=== PATIENT | female | born 1960 | race Two or more races ===

== ENCOUNTER 2018-05-31 11:15 | Emergency (ER) | payer BC, OTHER ==
[~2018-05-31] VITALS: Ht 162.6 cm; Wt 88.8 kg
[2018-05-31 12:52] LABS: BASOPHILS # (AUTO) 0.03 x10^3/uL (0-0.1); BASOPHILS % (AUTO) 0 % (0-1); EOSINOPHILS % (AUTO) 3 % (1-7); LYMPHOCYTES # (AUTO) 2.64 x10^3/uL (1-3.4); LYMPHOCYTES % (AUTO) 38 % (22-44); MD NO; MEAN CORPUSCULAR HEMOGLOBIN 31.5 pg (27.0-34.8); MEAN CORPUSCULAR HGB CONC 33.9 g/dL (32.4-35.8); MEAN PLATELET VOLUME 8.8 fL (7.4-10.4); MONOCYTES % (AUTO) 7 % (2-9); NEUTROPHILS # (AUTO) 3.66 x10^3/uL (1.8-6.8); NEUTROPHILS % (AUTO) 52 % (42-75); PLATELET COUNT 283 x10^3/uL (130-400); RED BLOOD COUNT 4.73 x10^6/uL (3.82-5.3); RED CELL DISTRIBUTION WIDTH 13.8 % (9.6-15.2)
[2018-05-31 12:56] LABS: INTERNATIONAL NORMALIZED RATIO 0.95 (0.93-1.1)
[2018-05-31 13:00] LABS: ANION GAP 6 mmol/L (5-15); CHLORIDE 110 mmol/L (98-107)
[2018-05-31 13:05] LABS: ALANINE AMINOTRANSFERASE 28 U/L (12-78); ALKALINE PHOSPHATASE 110 U/L (45-117); BILIRUBIN,TOTAL 0.4 mg/dL (0.2-1.0); CREATININE 0.83 mg/dL (0.55-1.02); TOTAL PROTEIN 7.8 g/dL (6.4-8.2)
--- NOTE | 2018-05-31 13:05 | NUR ---
Pt amb. to rm 24 from lobby
--- NOTE | 2018-05-31 13:27 | NUR ---
PT TO ED FOR NAUSEA X4 DAYS AND BLOODY STOOL X1 DAY. CONNECTED TO MONITORS.VSS. CALL LIGHT WITHIN REACH. MD ASSESSMENT COMPLETE. AWAITING ORDERS.
[2018-05-31] MEDS ORDERED: OMEP-110 PO (13:29)
[2018-05-31] MEDS ORDERED: METF500T17 PO (13:30)
[2018-05-31] MEDS ORDERED: PHEN37.53 PO (13:30)
[2018-05-31 13:58] VITALS: BP 122/80
--- NOTE | 2018-05-31 13:58 | NUR ---
pt resting in room with family at bedside. no needs at this time. vss. call light within reach. anoscopy setup complete.
--- NOTE | 2018-05-31 14:07 | NUR ---
md to bedside for anoscopy.
== END 2018-05-31 14:46 | disposition home or self-care (01) ==
LOC: ED 13:15
DX: K62.5 Hemorrhage of anus and rectum (principal); K64.8 Other hemorrhoids; R51 Headache
CPT/HCPCS: 36415; 80053; 85025; 85610; 85730; 99284

== ENCOUNTER → 2018-06-15 | Outpatient (CLI) | payer OTHER ==
[~2018-06-15] MED LIST: METF500T17 PO; OMEP-110 PO; PHEN37.53 PO
== END | disposition home or self-care (01) ==
LOC: RAD 14:09
PROVIDERS: ATTEND Nurse Practitioner Primary Care
DX: R42 Dizziness and giddiness (principal)
CPT/HCPCS: 93880

== ENCOUNTER → 2018-07-01 | Outpatient (CLI) | payer OTHER | END | disposition home or self-care (01) | LOC: CFH 13:24 | PROVIDERS: ATTEND Nurse Practitioner Primary Care | DX: N60.01 Solitary cyst of right breast (principal) | CPT/HCPCS: 76641; 77065; G0279 ==

== ENCOUNTER 2019-05-14 17:06 | Emergency (ER) | payer OTHER ==
[~2019-05-14] VITALS: Ht 162.6 cm; Wt 81.8 kg
[2019-05-14] MEDS ORDERED: HYDROcodone/APAP 5/325 TABLET ONE (17:56)
--- NOTE | 2019-05-14 17:57 | NUR ---
Pain L calf & ankle after falling while skiing today. Unable to bear weight due to pain 2+pedal pulse L foot. Ice to L calf. Leg in greatest position of comfort. PO pain med given as per emar for 10 LLE pain. x-rays pending, @ BS. Pt instructed to stay NPO & both aware of POC.
[2019-05-14] MEDS ORDERED: HYDROcodone/APAP 5/325 TABLET PO ONE (18:00)
[2019-05-14 19:41] VITALS: BP 136/82
== END 2019-05-14 19:56 | disposition home or self-care (01) ==
LOC: ED 17:35
DX: S82.65XA Nondisplaced fracture of lateral malleolus of left fibula, initial encounter for closed fracture (principal); W18.39XA Other fall on same level, initial encounter; Y93.89 Activity, other specified; Y92.828 Other wilderness area as the place of occurrence of the external cause; Y99.8 Other external cause status
CPT/HCPCS: 29515; 99283

== ENCOUNTER 2020-07-22 12:23 | Emergency (ER) | payer OTHER ==
[~2020-07-22] VITALS: Ht 162.6 cm; Wt 90.9 kg
--- NOTE | 2020-07-22 14:23 | NUR ---
pt wheeled to room. wrist elevated. awaiting xrs. as
[2020-07-22] MEDS ORDERED: ONDANSETRON ODT 4 MG ONE (14:40)
[2020-07-22] MEDS ORDERED: OXYcodone/APAP 5/325MG TABLET ONE (14:40)
[2020-07-22] MEDS ORDERED: ONDANSETRON ODT 4 MG PO ONE (15:00)
[2020-07-22] MEDS ORDERED: OXYcodone/APAP 5/325MG TABLET PO ONE (15:00)
--- NOTE | 2020-07-22 15:17 | NUR ---
TO BATHROOM, AWAITING SPLINTS.
--- NOTE | 2020-07-22 15:55 | NUR ---
pt w difficulty ambulating after splint/knee immob. would rather stay, v tearful, having pain, has 2 stair steps at home. notified maximo cardozo. as
--- NOTE | 2020-07-22 16:19 | NUR ---
awaiting md, plan ct. as
[2020-07-22] MEDS ORDERED: HYDROmorphone 1 MG/ML, 1ML INJ ONE (17:19)
[2020-07-22 17:25] VITALS: BP 160/102
--- NOTE | 2020-07-22 17:25 | NUR ---
BIAGET IN ROOM FOR EVAL, PT TBDC, LISANDRA IM PER JUN.
[2020-07-22] MEDS ORDERED: HYDROmorphone/PF 4 MG/ML, 1ML IM ONE (17:30)
== END 2020-07-22 18:03 | disposition home or self-care (01) ==
LOC: ED 14:44
DX: S52.501A Unspecified fracture of the lower end of right radius, initial encounter for closed fracture (principal); S83.92XA Sprain of unspecified site of left knee, initial encounter; I10 Essential (primary) hypertension; Z90.49 Acquired absence of other specified parts of digestive tract; Z88.8 Allergy status to other drugs, medicaments and biological substances; Z90.710 Acquired absence of both cervix and uterus; X58.XXXA Exposure to other specified factors, initial encounter; Y93.89 Activity, other specified; Y92.89 Other specified places as the place of occurrence of the external cause; Y99.8 Other external cause status
CPT/HCPCS: 29125; 29505; 73110; 73564; 73700; 96372; 99284; J1170; Q0162; 96374

== ENCOUNTER 2020-08-11 07:57 | Outpatient (CLI) | payer OTHER | END 2020-08-11 23:59 | disposition home or self-care (01) | LOC: RAD 07:57 | PROVIDERS: ATTEND Orthopaedic Surgery | DX: S83.512A Sprain of anterior cruciate ligament of left knee, initial encounter (principal); S82.202A Unspecified fracture of shaft of left tibia, initial encounter for closed fracture; S82.112A Displaced fracture of left tibial spine, initial encounter for closed fracture; M94.262 Chondromalacia, left knee; X58.XXXA Exposure to other specified factors, initial encounter; M25.462 Effusion, left knee; Y93.89 Activity, other specified; Y92.89 Other specified places as the place of occurrence of the external cause; Y99.8 Other external cause status ==